=== PATIENT | male | born 1985 | race Caucasian/White ===

== ENCOUNTER 2018-11-15 20:12 | Emergency (ER) | payer BC ==
[~2018-11-15] VITALS: Ht 175.3 cm; Wt 120.2 kg
[~2018-11-15 20:12] MED LIST: NORCO 5-325 TA1 EACH PO; PHENERGAN 25 MG25 M1 PO; ULTRAM 50MG TAB50 MG PO; ZANTAC 150MG T150 M1 PO
[2018-11-15] MEDS ORDERED: TRAMADOL 50 MG50 MG PO (21:16)
[2018-11-15 21:26] VITALS: BP 147/89
== END 2018-11-15 21:26 | disposition home or self-care (01) ==
LOC: M.ERS 20:12
DX: M25.561 Pain in right knee (principal); F17.210 Nicotine dependence, cigarettes, uncomplicated; Z90.49 Acquired absence of other specified parts of digestive tract